=== PATIENT | female | born 1990 | race Caucasian/White ===

== ENCOUNTER 2018-01-20 23:32 | Emergency (ER) | payer MEDICAID ==
[2018-01-21 00:03] VITALS: BP 108/73; PULSE 104; RESP 18; TEMP 98.5; O2SAT 99
--- NOTE | 2018-01-21 00:22 | ED PDOC ---
HPI: General Adult Time Seen by Provider: 01/21/18 00:09 Chief Complaint (Nursing): Abdominal Pain Chief Complaint (Provider): back pain, abd pain History Per: Patient Additional Complaint(s): 27-year-old female with history of sickle cell disease presents to emergency department with flank pain and hematuria that started yesterday. Patient states that she recently relocated from [place] to this area and she is in the process of finding new doctors. She reports that she has fever yesterday of 102.7. Patient denies any nausea or vomiting. Patient states she takes oxycodone 30 mg PO TID and percocet for breakthrough pain but these meds are not helping her pain. Past Medical History Reviewed: Historical Data, Nursing Documentation, Vital Signs Vital Signs: Last Vital Signs Temp 98.5 F 01/21/18 00:00 Pulse 104 H 01/21/18 00:00 Resp 18 01/21/18 00:00 BP 108/73 01/21/18 00:00 Pulse Ox 99 01/21/18 00:35 - Medical History PMH: Asthma, Pancreatitis, End Stage Renal Disease, Sickle Cell Disease - Surgical History Surgical History: Cholecystectomy - Family History Family History: States: No Known Family Hx - Living Arrangements Living Arrangements: With Family - Social History Current smoker - smoking cessation education provided: No Drugs: Denies - Immunization History Hx Tetanus Toxoid Vaccination: No Hx Influenza Vaccination: No Hx Pneumococcal Vaccination: No - Allergies Allergies/Adverse Reactions: Allergies Allergy/AdvReac Type Severity Reaction Status Date / Time No Known Allergies Allergy Unverified 01/20/18 23:59 Review of Systems ROS Statement: Except As Marked, All Systems Reviewed And Found Negative Constitutional: Positive for: Fever Musculoskeletal: Positive for: Back Pain (flank pain) Physical Exam - Reviewed Nursing Documentation Reviewed: Yes Vital Signs Reviewed: Yes - Physical Exam Appears: Positive for: Well Skin: Negative for: Rash Eye Exam: Positive for: Normal appearance ENT: Positive for: Other (multiple missing teeth noted) Cardiovascular/Chest: Positive for: Regular Rate, Rhythm Respiratory: Positive for: Normal Breath Sounds Gastrointestinal/Abdominal: Positive for: Soft. Negative for: Tenderness, Distended, Guarding Back: Negative for: L CVA Tenderness, R CVA Tenderness, Vertebral Tenderness Extremity: Positive for: Normal ROM Neurologic/Psych: Positive for: Alert, Oriented - Laboratory Results Urine dip results: Negative for: Leukocyte Esterase, Blood, Nitrate, Ketones, Glucose, Bilirubin, Protein - ECG O2 Sat by Pulse Oximetry: 99 Pulse Ox Interpretation: Normal Medical Decision Making Medical Decision Makin27 year old with flank pain and hematuria Patient was seen 2 hours prior to coming here at [facility] and she eloped after being informed of non-narcotic pain management policy. U dip negative for blood. Patient eloped from this ED before treatment complete. Disposition - Clinical Impression Clinical Impression: Flank pain, Left before treatment completed - Patient ED Disposition Is Patient to be Admitted: No - Disposition Disposition: Left W/O Treatment Disposition Time: 03:19 Condition: UNKNOWN Forms: [facility] (Indonesian) - POA Present On Arrival: None
== END 2018-01-21 00:55 | disposition left against medical advice (07) ==
LOC: H.ER 23:32 → MERGE 23:32 → H.ER 01-21 00:55
DX: R10.9 Unspecified abdominal pain (principal); J45.909 Unspecified asthma, uncomplicated; N18.6 End stage renal disease; D57.1 Sickle-cell disease without crisis